=== PATIENT | male | born 2005 | race Caucasian/White ===

== ENCOUNTER 2025-01-25 17:23 | Emergency (ER) | payer OTHER, SELFPAY ==
[2025-01-25 17:32] VITALS: BP 131/90
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
[2025-01-25 20:16] LABS: Amphetamines Negative (Negative); Barbiturates Negative (Negative); Benzodiazepines Negative (Negative); Buprenorphine Negative (Negative); Cocaine Negative (Negative); Marijuana Negative (Negative); Methadone Negative (Negative); Methamphetamines Negative (Negative); Opiates Negative (Negative); Phencyclidine Negative (Negative); Tricyclic Antidepressants Negative (Negative)
== END 2025-01-25 22:20 ==
LOC: EMR 17:23
PROVIDERS: Physician Assistant; EMERGENCY PHYSICIAN Student in an Organized Health Care Education/Training Program; FAMILY PHYSICIAN Nurse Practitioner Family
DX: R45.851 Suicidal ideations (principal); F32.A Depression, unspecified
CPT/HCPCS: 99285; 80306